=== PATIENT | female | born 1995 | race Caucasian/White ===

== ENCOUNTER 2016-11-13 15:07 | Outpatient (CLI) | payer BC ==
[2016-11-13 15:21] LABS: BASOPHILS % 0.2 (0.0-1.5); EOSINOPHILS % 1.7 % (0.0-6.8); LYMPHOCYTES # 2.8 # k/uL (0.6-4.0); MEAN CORPUSCULAR HEMOGLOBIN 30.1 pg (28.0-34.0); MONOCYTES # 0.4 # k/uL (0.0-0.9); MONOCYTES % 4.6 % (0.0-11.0); NEUTROPHILS # 4.6 # k/uL (1.4-7.7)
[2016-11-13 15:48] LABS: eGFR (African) > 60; eGFR (Non-African) > 60
--- NOTE | 2016-11-13 16:52 | Diagnostic Imaging Report ---
[facility] [id number] [facility] [address] [id number] Report Submission Date: Nov 13, 2016 3:59:12 PM PHOTOGRAMMETRIST Patient Study Name: MARTHA CASTRO Date: Nov 13, 2016 3:33:45 PM PHOTOGRAMMETRIST Modality Type: CR Gender: F Description: ABDOMEN : 89 Institution: [facility] Physician: JATINDER BELTRAN ABDOMEN AP view History: LOWER ABDOMEN PAIN X 6 MONTHS, SHARP PAIN STARTING TODAY Findings: The bowel gas pattern is normal. Mild retained stool is present. No radiopaque calculus is identified. Impression: 1. Normal bowel gas pattern. Electronically signed on Nov 13, 2016 3:59:12 PM PHOTOGRAMMETRIST by: Juan OLSON
== END 2016-11-13 15:10 ==
LOC: LAB 15:07
PROVIDERS: ATTEND Family Medicine
DX: R10.30 Lower abdominal pain, unspecified (principal)
CPT/HCPCS: 36415; 74000; 80053; 85025

== ENCOUNTER 2017-12-28 13:52 | Outpatient (CLI) | payer BC | END 2017-12-28 13:53 | LOC: LABRHC 13:52 | PROVIDERS: ATTEND Family Medicine | DX: N76.0 Acute vaginitis (principal) | CPT/HCPCS: 87491; 87591 ==